=== PATIENT | female | born 2000 | race Caucasian/White ===

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

== ENCOUNTER 2021-01-21 13:38 | Emergency (ER) | payer MEDICAID ==
[2021-01-21 17:24] LABS: RAPID GROUP A STREP NEGATIVE (NEGATIVE)
[2021-01-21] MEDS ORDERED: LIDOCAINE HCL 2% VISCOUS 15 ML UDCUP ONE (18:04)
[2021-01-21] MEDS ORDERED: ACETAMINOPHEN EXTRA STRENGTH 500 MG TABLET ONE (18:04)
== END 2021-01-21 18:17 | disposition home or self-care (01) ==
LOC: EDH 13:38
DX: B34.9 Viral infection, unspecified (principal); J02.9 Acute pharyngitis, unspecified
CPT/HCPCS: 87804; 87880